=== PATIENT | female | born 1955 | race Hispanic/Latino ===

== ENCOUNTER 2019-12-26 06:15 | Outpatient (CLI) | payer MEDICARE, MEDICAID, OTHER ==
[2019-12-26 11:54] LABS: Hemoglobin 14.2 g/dL (12.0-16.0); Mean Corpuscular Hemoglobin 29.4 pg (27.0-31.0); Mean Platelet Volume 9.1 fL (7.4-10.4); Platelet Count 221 thou/uL (130-400); RBC Distribution Width 12.5 % (11.5-14.5); Red Blood Cell (RBC) Count 4.84 mill/uL (4.20-5.40); White Blood Cell (WBC) Count 6.6 thou/uL (4.8-10.8)
[2019-12-26 12:03] LABS: Anion Gap 13 mmol/L (10-20); BUN (Urea Nitrogen) 15 mg/dL (9.8-20.1); Calc. Creatinine Clearance 0 mL/min (70-130); Calcium 10.3 mg/dL (7.8-10.44); Carbon Dioxide 28 mmol/L (23-31); Chloride 105 mmol/L (98-107); Estimated GFR-MDRD 73; Glucose 112 mg/dL (80-115); Potassium 4.3 mmol/L (3.5-5.1); Sodium 142 mmol/L (136-145)
[2019-12-26 19:53] LABS: SARS-CoV-2 MS2 Positive; SARS-CoV-2 N Gene Negative; SARS-CoV-2 S Gene Negative; SARS-CoV-2 orf1ab Negative
== END 2019-12-26 06:16 | disposition home or self-care (01) ==
LOC: LABBT 06:15
PROVIDERS: ATTEND Neurological Surgery
DX: Z01.812 Encounter for preprocedural laboratory examination (principal); Z11.59 Encounter for screening for other viral diseases; M54.12 Radiculopathy, cervical region
CPT/HCPCS: 80048; 85027; U0003; 87635

== ENCOUNTER 2019-12-26 10:00 | Inpatient (IN) | payer MEDICARE, MEDICAID ==
[2019-12-31] MEDS ORDERED: Dexamethasone 20 MG/5 ML VIAL ONE (09:45)
[2019-12-31] MEDS ORDERED: PROPOFOL 200 MG/20 ML VIAL ONE (09:45)
[2019-12-31] MEDS ORDERED: Ondansetron PF 4 MG/2 ML Vial ONE (09:45)
[2019-12-31] MEDS ORDERED: PHENYLEPHRINE-NS 100 MCG/ML 10 ML SYRINGE ONE (09:45)
[2019-12-31] MEDS ORDERED: Rocuronium Bromide 10 MG/ML (10ML VIAL) ONE (09:45)
[2019-12-31] MEDS ORDERED: Lidocaine 1% PF 5 ML VIAL ONE (09:45)
[2019-12-31] MEDS ORDERED: Sodium Chloride 0.9% 10 ML ONE (09:57)
[2019-12-31] MEDS ORDERED: Fentanyl 250 MCG/5 ML VIAL ONE (09:58)
[2019-12-31] MEDS ORDERED: SUGAMMADEX SODIUM 200 MG/2 ML VIAL ONE (11:47)
[2019-12-31] MEDS ORDERED: HYDROmorphone 2 MG/ML VIAL SLOW IVP PRN (12:19)
[2019-12-31] MEDS ORDERED: Ketorolac Tromethamine 30 MG/ML VIAL IVP PRN (12:19)
[2019-12-31] MEDS ORDERED: Ondansetron HCl/PF 4 MG/2 ML Vial IVP PRN (12:19)
[2019-12-31] MEDS ORDERED: Promethazine HCl 25 MG/ML VIAL SLOW IVP PRN (12:19)
[2019-12-31] MEDS ORDERED: Promethazine HCl 25 MG/ML VIAL IM PRN ×2 (12:19→15:38)
[2019-12-31] MEDS ORDERED: Meperidine HCl/PF 25 MG/ML VIAL SLOW IVP PRN (12:19)
[2019-12-31] MEDS ORDERED: HYDROmorphone 0.5 MG/0.5 ML SYRINGE ONE ×3 (12:21→12:41)
[2019-12-31] MEDS ORDERED: Fentanyl 100 MCG/2 ML VIAL ONE (13:17)
--- NOTE | 2019-12-31 13:40 | OP ---
DATE OF PROCEDURE: 12/31/2019 TECHNICAL SALES CONSULTANT: Silke Manning PA-C PROCEDURES PERFORMED: Removal of hardware, C5 through C7; expiration of spinal fusion, C5 through C7; anterior cervical diskectomy and fusion, C4-C5; interbody arthrodesis, intervertebral biomechanical device, local morselized autograft, demineralized bone matrix, anterior titanium instrumentation, C4-C5. DESCRIPTION OF PROCEDURE: The patient was brought to the operating room and intubated. She was positioned supine with head in modest extension on a gel-filled donut. An incision made in the right precervical area and dissected medial to the sternocleidomastoid muscle. We identified the anterior cervical spinal, and the level was confirmed by x-ray. We next removed the anterior cervical plate from C5 through C7 without difficulty, explored the spinal fusion and it seemed to be solid. We placed distraction across C4-C5, removed the intervertebral disk and completely decompressed the neural elements. The bony endplates at C4-C5 were then decorticated for the purpose of arthrodesis and appropriate-sized intervertebral biomechanical PEEK device was brought into the field. It was filled with demineralized bone matrix and local morselized autograft, and tapped in place securely at C4-5. Next, an anterior plate was brought into the field and secured to C4 and to C5 using two 14-mm screws at each level. The wound was then extensively irrigated and MAC hemostasis was secured. The wound was closed in anatomic layers over drain. Job ID: [id number]
--- NOTE | 2019-12-31 13:48 | OP ---
DATE OF PROCEDURE: 12/31/2019 SERVICE SPECIALIST: Nigel. DICTATION END HERE Job ID: [id number]
[2019-12-31] MEDS ORDERED: diphenhydrAMINE 50 MG/ML VIAL ONE (14:28)
[2019-12-31] MEDS ORDERED: diphenhydrAMINE 50 MG/ML VIAL IVP PRN ×2 (14:30→15:38)
[2019-12-31] MEDS ORDERED: Promethazine 25 MG TAB PO PRN (15:38)
[2019-12-31] MEDS ORDERED: HYDROcodone/Acetaminophen 10/325 mg Tablet PO PRN (15:38)
[2019-12-31] MEDS ORDERED: Morphine 2 MG/ML VIAL SLOW IVP PRN (15:38)
[2019-12-31] MEDS ORDERED: Morphine 4 MG/ML VIAL SLOW IVP PRN (15:38)
[2019-12-31] MEDS ORDERED: tiZANidine HCl 4 MG TAB PO PRN (15:38)
[2019-12-31] MEDS ORDERED: Milk Of Magnesia 30 ML UDCUP PO PRN (15:38)
[2019-12-31] MEDS ORDERED: Mag-Al 1200 mg/1200 mg/30 ML UDCUP PO PRN (15:38)
[2019-12-31] MEDS ORDERED: diphenhydrAMINE 25 MG CAP PO PRN (15:38)
[2019-12-31] MEDS ORDERED: traMADol HCl 50 MG TAB PO PRN ×2 (15:38)
[2019-12-31] MEDS ORDERED: Ondansetron PF 4 MG/2 ML Vial IVP PRN (15:41)
[2019-12-31] MEDS ORDERED: HYDROcodone/Acetaminophen 7.5/325 mg Tablet PO PRN (16:04)
[2019-12-31] MEDS: Sodium Chloride 0.9% 1,000 ML IV SCH (16:50)
[2019-12-31] MEDS: HYDROcodone/Acetaminophen 10/325 mg Tablet PO PRN (19:51)
[2019-12-31] MEDS: tiZANidine HCl 4 MG TAB PO SCH (19:54)
[2019-12-31] MEDS: Nortriptyline 10 MG CAP PO SCH (19:54)
[2019-12-31] MEDS: Gabapentin 300 MG CAP PO SCH (19:54)
[2019-12-31] MEDS: Rosuvastatin 20 MG TAB PO SCH (19:54)
--- NOTE | 2019-12-31 19:55 | PDOC.HOSPP ---
- Subjective Encounter Date: 12/31/19 Encounter Time: 19:54 Subjective: Patient seen and examined for med mngt. No CP/SOB or palpitations. Pain controlled. No CP or SOB. - Objective Vital Signs & Weight: Vital Signs (12 hours) Temp Pulse Resp BP Pulse Ox 12/31/19 19:15 98.6 F 85 16 115/70 94 L 12/31/19 16:00 93 L 12/31/19 15:05 97.8 F 74 18 135/80 95 I&O: 12/30/19 12/31/19 01/01/20 06:59 06:59 06:59 Output Total 30 Balance -30 Additional Labs: Laboratory Tests 12/26/19 12/26/19 08:59 08:59 WBC 6.6 Hgb 14.2 Sodium 142 Potassium 4.3 BUN 15 Creatinine 0.79 Estimated GFR (MDRD) 73 EKG Reviewed by me: Yes (SR) Hospitalist ROS - Review of Systems Respiratory: denies: cough, dry, shortness of breath, hemoptysis, SOB with excertion, pleuritic pain, sputum, wheezing, other Cardiovascular: denies: chest pain, palpitations, orthopnea, paroxysmal noc. dyspnea, edema, light headedness, other Gastrointestinal: denies: nausea, vomiting, abdominal pain, diarrhea, constipation, melena, hematochezia, other - Medication Medications: Active Medications Generic Name Dose Route Start Last Admin Trade Name Freq PRN Reason Stop Dose Admin Sodium Chloride 1,000 mls @ 75 mls/hr 12/31/19 15:38 12/31/19 16:50 Normal Saline 0.9% IV 1,000 mls .[id number] NORTH Administration Morphine Sulfate 2 mg 12/31/19 15:38 12/31/19 18:12 Morphine SLOW IVP 2 mg Q1H PRN Administration Moderate Breakthrough Pain - Exam General Appearance: NAD Neck: supple, no JVD Heart: no gallops, no rubs Respiratory: no rales, no ronchi Gastrointestinal: soft, non-tender, no guarding, no rigidity Extremities: no cyanosis, no clubbing Hosp A/P - Plan PT/OT, incentive spirometry, DVT proph w/SCDs DM2 HTN CAD HLD CKD 2 DJD PLAN: Start sliding scale Cont Jardiance Cont Metoprolol Cont Statins Cont Ranexa Full code. DPOA - self/family Thank you for this consulation. Will follow
[2019-12-31] MEDS ORDERED: Dextrose 50% Abboject 50 ML SYRINGE SLOW IVP PRN (19:58)
[2019-12-31] MEDS ORDERED: Dextrose 5% in Water 1,000 ML IV PRN (19:58)
[2019-12-31] MEDS ORDERED: Insulin Regular 300 UNITS/3 ML VIAL SC PRN ×2 (19:58)
[2019-12-31] MEDS: CEFAZOLIN 2 GM in Premix Bag 1 BAG IVPB SCH (21:17)
[2020-01-01] MEDS: HYDROcodone/Acetaminophen 10/325 mg Tablet PO PRN ×3 (03:45→17:58)
[2020-01-01] MEDS: Sodium Chloride 0.9% 1,000 ML IV SCH ×2 (03:49→17:42)
[2020-01-01] MEDS: CEFAZOLIN 2 GM in Premix Bag 1 BAG IVPB SCH (05:41)
--- NOTE | 2020-01-01 06:45 | PRG ---
DATE OF SERVICE: 01/01/2020 SUBJECTIVE: The patient is postoperative day #1, status post removal of hardware and C4-C5 ACDF. Following the surgery, she was transitioned to the Med/Surg floor, where her pain has been well controlled with p.o. medications, she is tolerating a regular diet, she is voiding appropriately. She has had approximately 35 mL out from her ADARSH drain. I used a dental assisting instructor this morning in our assessment. OBJECTIVE: GENERAL: On exam this morning, she is awake, alert, in no acute distress. EXTREMITIES: She has free active range of motion of all extremities. No focal motor weakness. HEENT: She has a normal voice. ASSESSMENT AND PLAN: Overall, the patient is doing quite well. We will go ahead and remove the ADARSH drain. We will continue to mobilize with the assistance of PT today and I anticipate home tomorrow. Job ID: [id number]
[2020-01-01 07:29] VITALS: BMI 27.8
[2020-01-01] MEDS: Empagliflozin 10 MG TAB PO SCH (09:15)
[2020-01-01] MEDS: Metoprolol Tartrate 25 MG TAB PO SCH (09:15)
[2020-01-01] MEDS: Exemestane 25 MG TAB PO SCH (09:17)
--- NOTE | 2020-01-01 16:10 | PDOC.HOSPP ---
- Subjective Encounter Date: 01/01/20 Encounter Time: 15:00 Subjective: Patient seen and examined for med mngt. Pain controlled. No CP/SOB. No new complaints. No overnight events - Objective Vital Signs & Weight: Vital Signs (12 hours) Temp Pulse Resp BP Pulse Ox 01/01/20 11:18 98.2 F 72 18 111/59 L 96 01/01/20 08:45 93 L 01/01/20 07:49 97.8 F 70 18 123/72 93 L 01/01/20 04:10 97.8 F 72 16 120/59 L 94 L Weight Weight 147 lb I&O: 12/31/19 01/01/20 01/02/20 06:59 06:59 06:59 Intake Total 830 Output Total 65 15 Balance 765 -15 Additional Labs: Accuchecks 01/01/20 01/01/20 01/01/20 15:57 11:28 05:46 POC Glucose 131 H 100 102 12/31/19 20:46 POC Glucose 133 H Laboratory Tests 12/26/19 08:59 BUN 15 Creatinine 0.79 Hospitalist ROS - Review of Systems Respiratory: denies: cough, dry, shortness of breath, hemoptysis, SOB with excertion, pleuritic pain, sputum, wheezing, other Cardiovascular: denies: chest pain, palpitations, orthopnea, paroxysmal noc. dyspnea, edema, light headedness, other - Medication Medications: Active Medications Generic Name Dose Route Start Last Admin Trade Name Freq PRN Reason Stop Dose Admin Hydrocodone Bitart/Acetaminophen 2 tab 12/31/19 15:38 01/01/20 09:21 [place] 10/325 PO 2 tab Q4H PRN Administration PAIN (4-6) Exemestane 25 mg 01/01/20 09:00 01/01/20 09:17 Aromasin PO 25 mg QAM NORTH Administration Gabapentin 600 mg 12/31/19 21:00 12/31/19 19:54 Neurontin PO 600 mg QPM NORTH Administration Sodium Chloride 1,000 mls @ 75 mls/hr 12/31/19 15:38 01/01/20 03:49 Normal Saline 0.9% IV Not Given .[id number] NORTH Metoprolol Tartrate 25 mg 01/01/20 09:00 01/01/20 09:15 Lopressor PO 25 mg QAM NORTH Administration Miscellaneous Medication 10 mg 01/01/20 09:00 01/01/20 09:15 Jardiance PO 10 mg QAM NORTH Administration Morphine Sulfate 2 mg 12/31/19 15:38 12/31/19 18:12 Morphine SLOW IVP 2 mg Q1H PRN Administration Moderate Breakthrough Pain Nortriptyline HCl 10 mg 12/31/19 21:00 12/31/19 19:54 Pamelor PO 10 mg HS NORTH Administration Ranolazine 500 mg 01/01/20 09:00 01/01/20 09:15 Ranexa PO 500 mg QAM NORTH Administration Rosuvastatin Calcium 20 mg 12/31/19 21:00 12/31/19 19:54 Crestor PO 20 mg HS NORTH Administration Tizanidine HCl 6 mg 12/31/19 21:00 12/31/19 19:54 Zanaflex PO 6 mg HS NORTH Administration - Exam General Appearance: NAD Neck: supple, no JVD Heart: RRR, no gallops Respiratory: CTAB, no rales Gastrointestinal: soft, non-distended Extremities: no cyanosis Psychiatric: A&O x 3 Hosp A/P - Plan DVT proph w/SCDs DM2 - on sliding scale HTN -on Metoprolol CAD HLD -on Statins CKD 2 DJD PLAN: Cont sliding scale with Jardiance Cont Metoprolol Cont Statins Cont Ranexa
[2020-01-01] MEDS: tiZANidine HCl 4 MG TAB PO SCH (21:35)
[2020-01-01] MEDS: Rosuvastatin 20 MG TAB PO SCH (21:36)
[2020-01-01] MEDS: Gabapentin 300 MG CAP PO SCH (21:37)
[2020-01-01] MEDS: Nortriptyline 10 MG CAP PO SCH (21:37)
[2020-01-02 00:05] VITALS: TEMP 98.3
[2020-01-02] MEDS: HYDROcodone/Acetaminophen 10/325 mg Tablet PO PRN ×2 (00:35→05:40)
[2020-01-02 08:09] VITALS: BP 102/66
[2020-01-02] MEDS: Empagliflozin 10 MG TAB PO SCH (08:37)
[2020-01-02] MEDS: Metoprolol Tartrate 25 MG TAB PO SCH (08:38)
[2020-01-02] MEDS: Sodium Chloride 0.9% 1,000 ML IV SCH (08:46)
[2020-01-02] MEDS: Exemestane 25 MG TAB PO SCH (09:45)
--- NOTE | 2020-01-02 17:33 | DIS ---
DATE OF ADMISSION: 12/31/2019 DATE OF DISCHARGE: 01/02/2020 DISCHARGE DIAGNOSIS: Cervical spondylosis. DISCHARGE SUMMARY: The patient is a 64-year-old female, recently evaluated in our office for progressive neck pain. She was found to have increased cervical degenerative changes above her prior fusion at C4-C5. She underwent removal of hardware and C4-C5 ACDF on 12/31/2019. Following surgery, she was transitioned to the Med/Surg floor, where her pain has been well-controlled with p.o. medications, she is tolerating a regular diet, and she is voiding appropriately. She has ambulated in the department without any difficulty. She did have a ADARSH drain placed intraoperatively which had minimal output over the first night and was removed on postoperative day #1. OBJECTIVE: On exam on postoperative day #2, she is awake, alert, in no acute distress. She had free active range of motion of all extremities. No focal motor weakness. Her incision was clean, dry, and intact. PLAN: We will go ahead and dismiss the patient to home. I have discussed home care precautions. She will follow up with us in 2 weeks. Her pain medications are being prescribed by her pain management physician, Dr. Banks. Job ID: [id number]
== END 2020-01-02 14:05 | disposition home or self-care (01) | DRG 473 ==
LOC: SURG A 12-31 06:57 → EDSTATUS 12-31 10:00 → SURG A 12-31 15:05
PROVIDERS: ADMIT Neurological Surgery; ATTEND Neurological Surgery
PROC: 0RG10A0 Fusion of Cervical Vertebral Joint with Interbody Fusion Device, Anterior Approach, Anterior Column, Open Approach (ICD-10-PCS; principal; 2019-12-31)
PROC: 0RB30ZZ Excision of Cervical Vertebral Disc, Open Approach (ICD-10-PCS; 2019-12-31)
PROC: 0PP304Z Removal of Internal Fixation Device from Cervical Vertebra, Open Approach (ICD-10-PCS; 2019-12-31)
DX: M47.22 Other spondylosis with radiculopathy, cervical region (principal); E11.22 Type 2 diabetes mellitus with diabetic chronic kidney disease; I12.9 Hypertensive chronic kidney disease with stage 1 through stage 4 chronic kidney disease, or unspecified chronic kidney disease; N18.2 Chronic kidney disease, stage 2 (mild); I25.10 Atherosclerotic heart disease of native coronary artery without angina pectoris; E78.5 Hyperlipidemia, unspecified; Z79.899 Other long term (current) drug therapy; Z79.82 Long term (current) use of aspirin; Z87.891 Personal history of nicotine dependence
CPT/HCPCS: 36416; 76000; 93005; 93010; C1713; C1776; J0690; J1100; J1170; J1200; J2270; J2405; J2704; J3010; J3490; Q0163

== ENCOUNTER 2021-12-09 14:00 | Inpatient (IN) | payer MEDICARE, MEDICAID ==
[2021-12-10 13:13] VITALS: BMI 26.4
[2021-12-14] MEDS ORDERED: fentaNYL Citrate/PF 100 MCG/2 ML SYRINGE ONE (10:14)
[2021-12-14] MEDS ORDERED: CEFAZOLIN 2 GM VIAL ONE (11:46)
[2021-12-14] MEDS ORDERED: Sodium Chloride 0.9% 100 ML ONE (11:46)
[2021-12-14] MEDS ORDERED: PROPOFOL 200 MG/20 ML VIAL ONE (12:02)
[2021-12-14] MEDS ORDERED: Glycopyrrolate 0.2 MG/ML 5 ML SYRINGE ONE (12:02)
[2021-12-14] MEDS ORDERED: Dexamethasone 20 MG/5 ML VIAL ONE (12:02)
[2021-12-14] MEDS ORDERED: Lidocaine 1% PF 5 ML VIAL ONE (12:02)
[2021-12-14] MEDS ORDERED: Rocuronium Bromide 10 MG/ML (10ML VIAL) ONE (12:02)
[2021-12-14] MEDS ORDERED: Ondansetron PF 4 MG/2 ML Vial ONE (12:02)
[2021-12-14] MEDS ORDERED: Mag-Al 1200 mg/1200 mg/30 ML UDCUP PO PRN (12:57)
[2021-12-14] MEDS ORDERED: Cyclobenzaprine 10 MG TAB PO PRN (12:57)
[2021-12-14] MEDS ORDERED: Promethazine 25 MG TAB PO PRN (12:57)
[2021-12-14] MEDS ORDERED: diphenhydrAMINE 50 MG/ML VIAL IVP PRN (12:57)
[2021-12-14] MEDS ORDERED: Acetaminophen 325 MG TAB PO PRN (12:57)
[2021-12-14] MEDS ORDERED: traMADol HCl 50 MG TAB PO PRN (12:57)
[2021-12-14] MEDS ORDERED: Ondansetron PF 4 MG/2 ML Vial IVP PRN (12:57)
[2021-12-14] MEDS ORDERED: Milk Of Magnesia 30 ML UDCUP PO PRN (12:57)
[2021-12-14] MEDS ORDERED: ceFAZolin 2 GM/Dextrose 50 ML 2 GM in Premix Bag 1 BAG IVPB SCH (13:00)
[2021-12-14] MEDS ORDERED: HumaLOG 300 UNITS/3 ML VIAL SC PRN (13:02)
[2021-12-14] MEDS ORDERED: Dextrose 50% Abboject 50 ML SYRINGE SLOW IVP PRN (13:02)
[2021-12-14] MEDS ORDERED: Dextrose 5% in Water 1,000 ML IV PRN (13:02)
[2021-12-14] MEDS ORDERED: Fentanyl 100 MCG/2 ML VIAL ONE ×2 (13:31→14:11)
[2021-12-14] MEDS: CEFAZOLIN 2 GM in Sodium Chloride 0.9% 100 ML IVPB SCH (18:27)
[2021-12-14] MEDS: Sodium Chloride 0.9% 1,000 ML IV SCH (19:33)
[2021-12-14] MEDS ORDERED: Gabapentin 300 MG CAP PO SCH ×2 (21:00)
[2021-12-14] MEDS ORDERED: Bisacodyl 5 MG TAB PO PRN (21:00)
[2021-12-14] MEDS ORDERED: Nortriptyline 10 MG CAP PO SCH ×2 (21:00)
[2021-12-14] MEDS ORDERED: Senokot S 8.6-50 MG TAB PO PRN (21:00)
[2021-12-14] MEDS ORDERED: Melatonin 3 MG TAB PO PRN (21:03)
[2021-12-14] MEDS ORDERED: Pantoprazole 40 MG VIAL IVP SCH (21:15)
[2021-12-14] MEDS: Morphine 2 MG/ML VIAL SLOW IVP PRN (21:28)
[2021-12-14] MEDS ORDERED: Albuterol Sulfate 2.5 mg/3 ml Neb NEB PRN (21:30)
[2021-12-15] MEDS: Sodium Chloride 0.9% 1,000 ML IV SCH (00:57)
[2021-12-15] MEDS: Morphine 2 MG/ML VIAL SLOW IVP PRN (03:23)
[2021-12-15] MEDS: CEFAZOLIN 2 GM in Sodium Chloride 0.9% 100 ML IVPB SCH (03:24)
[2021-12-15] MEDS: HYDROcodone/Acetaminophen 10/325 mg Tablet PO PRN ×3 (04:03→12:57)
[2021-12-15 05:11] LABS: #Monocytes 0.5 thou/uL (0.11-0.59); #Neutrophils 7.9 thou/uL (1.40-6.50); %Basophils 0.3 % (0.0-1.0); %Eosinophils 0.1 % (0.0-10.0); %Lymphocytes 10.9 % (21.0-51.0); %Monocytes 5.6 % (0.0-10.0); %Neutrophils 83.1 % (42.0-75.0); Hemoglobin 12.8 g/dL (12.0-16.0); Mean Corpuscular HGB CONC 32.2 g/dL (32.0-36.0); Mean Corpuscular Hemoglobin 31.4 pg (27.0-31.0); Mean Corpuscular Volume 97.4 fL (78.0-98.0); Mean Platelet Volume 8.1 fL (7.4-10.4); Platelet Count 209 thou/uL (130-400); RBC Distribution Width 12.3 % (11.5-14.5); Red Blood Cell (RBC) Count 4.08 mill/uL (4.20-5.40); White Blood Cell (WBC) Count 9.5 thou/uL (4.8-10.8)
[2021-12-15 05:27] LABS: Hemoglobin A1c 5.7 % (4.0-6.0)
[2021-12-15 05:34] LABS: ALT (SGPT) 10 U/L (8-55); AST (SGOT) 11 U/L (5-34); Albumin 3.6 g/dL (3.4-4.8); Alkaline Phosphatase 71 U/L (40-110); Anion Gap 14 mmol/L (10-20); BUN (Urea Nitrogen) 14 mg/dL (9.8-20.1); Bilirubin, Total 0.4 mg/dL (0.2-1.2); Calc. Creatinine Clearance 78 mL/min (70-130); Calcium 8.6 mg/dL (7.8-10.44); Carbon Dioxide 24 mmol/L (23-31); Chloride 105 mmol/L (98-107); Cholesterol 168 mg/dl (< 200 Desired); Estimated GFR 94; Globulin 2.4 g/dL (2.4-3.5); Glucose 124 mg/dL (80-115); HDL Cholesterol 42 mg/dL (>60 Neg Risk); LDL Cholesterol, Calculated 112 mg/dL; Potassium 3.8 mmol/L (3.5-5.1); Sodium 139 mmol/L (136-145); Triglycerides 71 mg/dL (Less than 150)
[2021-12-15] MEDS ORDERED: Exemestane 25 MG TAB PO SCH (09:00)
[2021-12-15] MEDS ORDERED: Empagliflozin 10 MG TAB PO SCH (09:00)
[2021-12-15] MEDS ORDERED: Rosuvastatin 20 MG TAB PO SCH ×2 (09:00→21:00)
[2021-12-15] MEDS ORDERED: Metoprolol Tartrate 25 MG TAB PO SCH ×2 (09:00)
[2021-12-15] MEDS ORDERED: Pantoprazole 40 MG VIAL IVP SCH (09:00)
[2021-12-15 09:58] LABS: Bacteria/HPF None Seen HPF (None Seen); Bilirubin Negative (Negative); Blood, Urine Negative (Negative); Clarity Clear (Clear); Glucose, Urine (Dipstick) Greater than 1000 mg/dL (Negative); Ketone, Urine Negative (Negative); Leukocyte Negative Leu/uL (Negative); Nitrite Negative (Negative); Protein, Urine (Dipstick) Negative (Neg-Trace); RBC/HPF 0-3 HPF (0-3); Squamous Epithelial 0-3 HPF (0-3); Urobilinogen Normal mg/dL (Less than 2); WBC/HPF 0-3 HPF (0-3)
[2021-12-15 10:00] LABS: Urine Culture Reflex No No
[2021-12-15 12:27] VITALS: BP 108/57; TEMP 98.4
[2021-12-15] MEDS ORDERED: tiZANidine HCl 4 MG TAB PO SCH (21:00)
[2021-12-21] MEDS ORDERED: SEMAGLUTIDE 0.25 MG/0.2 ML SC SCH (09:00)
== END 2021-12-15 14:23 | disposition home or self-care (01) | DRG 472 ==
LOC: SURG A 12-14 08:01 → SJJU 12-14 17:38
PROVIDERS: ADMIT Neurological Surgery; ATTEND Neurological Surgery
PROC: 0RG20A0 Fusion of 2 or more Cervical Vertebral Joints with Interbody Fusion Device, Anterior Approach, Anterior Column, Open Approach (ICD-10-PCS; principal; 2021-12-14)
PROC: 0RB30ZZ Excision of Cervical Vertebral Disc, Open Approach (ICD-10-PCS; 2021-12-14)
PROC: 0PP304Z Removal of Internal Fixation Device from Cervical Vertebra, Open Approach (ICD-10-PCS; 2021-12-14)
DX: M48.02 Spinal stenosis, cervical region (principal); M47.12 Other spondylosis with myelopathy, cervical region; Z20.822 Contact with and (suspected) exposure to COVID-19; E78.5 Hyperlipidemia, unspecified; G89.29 Other chronic pain; I10 Essential (primary) hypertension; J45.909 Unspecified asthma, uncomplicated; E11.65 Type 2 diabetes mellitus with hyperglycemia; G47.33 Obstructive sleep apnea (adult) (pediatric); Z79.899 Other long term (current) drug therapy; Z87.891 Personal history of nicotine dependence; Z98.890 Other specified postprocedural states; Z79.82 Long term (current) use of aspirin; Z79.84 Long term (current) use of oral hypoglycemic drugs
CPT/HCPCS: 36415; 36416; 76000; 80053; 80061; 81001; 83036; 85025; C1713; C9113; J0690; J1100; J2270; J2405; J2704; J2710; J3010; J3490; J7050

== ENCOUNTER 2021-12-09 14:03 | Outpatient (CLI) | payer MEDICARE, MEDICAID ==
[2021-12-09 15:02] LABS: Hemoglobin 13.6 g/dL (12.0-15.5); Mean Corpuscular HGB CONC 33.2 g/dL (32.0-36.0); Mean Corpuscular Hemoglobin 30.4 pg (27.0-33.0); Mean Corpuscular Volume 91.7 fl (81.6-98.3); Mean Platelet Volume 10.5 fl (7.4-10.4); Platelet Count 244 10x3/uL (150-450); RBC Distribution Width 13.5 % (11.5-14.5); Red Blood Cell (RBC) Count 4.47 10x6/uL (3.90-5.03); White Blood Cell (WBC) Count 5.8 10x3/uL (3.5-10.5)
[2021-12-09 15:16] LABS: Anion Gap 14 mmol/L (10-20); BUN (Urea Nitrogen) 17 mg/dL (9.8-20.1); Calc. Creatinine Clearance 0 mL/min (70-130); Calcium 9.3 mg/dL (7.8-10.44); Carbon Dioxide 27 mmol/L (23-31); Chloride 104 mmol/L (98-107); Estimated GFR 77; Glucose 108 mg/dL (80-115); Potassium 3.9 mmol/L (3.5-5.1); Sodium 141 mmol/L (136-145)
== END 2021-12-09 14:04 | disposition home or self-care (01) ==
LOC: LABBT 14:03
PROVIDERS: ATTEND Neurological Surgery
DX: Z01.818 Encounter for other preprocedural examination (principal); M47.12 Other spondylosis with myelopathy, cervical region; Z20.822 Contact with and (suspected) exposure to COVID-19
CPT/HCPCS: 80048; 85027; 87811; 93005; 93010

== ENCOUNTER 2022-01-13 13:06 | Outpatient (CLI) | payer MEDICAID, MEDICARE, OTHER | END 2022-01-13 13:07 | disposition home or self-care (01) | LOC: TBSIIMAG 13:06 | PROVIDERS: ATTEND Neurological Surgery | DX: M47.12 Other spondylosis with myelopathy, cervical region (principal) | CPT/HCPCS: 72040 ==